=== PATIENT | female | born 1995 | race Caucasian/White ===

== ENCOUNTER 2017-05-14 22:34 | Emergency (ER) | payer MEDICAID ==
--- NOTE | 2017-05-14 23:28 | Emergency Department Record ---
History of Present Illness - General Chief complaint: Rash Stated complaint: RASH Time Seen by Provider: 05/14/17 23:21 Source: Patient Mode of Arrival: Ambulatory - History of Present Illness Initial comments: The [place] where she thought she may be exposed to poison lashell. She has a history of this in the past. This time her abdomen began itching which now is spreading to her legs and is on her arms. No SAMPSON or dysphagia. MD complaint: Rash Onset/Timin -: Days(s) Hx Tetanus Toxoid Vaccination: No Patient Tetanus UTD (within 5 yrs): No Consistency: Constant Improves with: None Worsens with: None Context: Recent camping Associated symptoms: Denies other symptoms Treatments Prior to Arrival: None - Related Data Home Medications Medication Instructions Recorded Confirmed Last Taken Atomoxetine HCl [Atomoxetine HCl] 25 mg PO DAILY 05/14/17 05/14/17 05/14/17 Norgestimate-Ethinyl Estradiol 1 tab PO DAILY 05/14/17 05/14/17 05/14/17 [[place] 28 Tablet] Previous Rx's Medication Instructions Recorded Prednisone [Prednisone 20Mg] 20 mg PO DAILY #20 tab 05/14/17 Allergies Allergy/AdvReac Type Severity Reaction Status Date / Time No Known Drug Allergies Allergy Verified 05/14/17 23:02 Travel Screening - Travel/Exposure Within Last 30 Days Have you traveled within the last 30 days?: No Review of Systems Reviewed: No additional complaints except as noted below Constitutional: Reports: As per HPI. Denies: Chills, Fever, Malaise, Night sweats, Weakness, Weight change Eyes: Reports: As per HPI. Denies: Eye discharge, Eye pain, Photophobia, Vision change ENT: Reports: As per HPI. Denies: Congestion, Dental pain, Ear pain, Epistaxis , Hearing loss, Throat pain Respiratory: Reports: As per HPI. Denies: Cough, Dyspnea, Hemoptysis, Stridor, Wheezes Cardiovascular: Reports: As per HPI. Denies: Arrhythmia, Chest pain, Dyspnea on exertion, Edema, Murmurs, Orthopnea, Palpitations, Paroxysmal nocturnal dyspnea, Rheumatic Fever, Syncope Endocrine: Reports: As per HPI. Denies: Fatigue, Heat or cold intolerance, Polydipsia, Polyuria Gastrointestinal: Reports: As per HPI. Denies: Abdominal pain, Constipation, Diarrhea, Hematemesis, Hematochezia, Melena, Nausea, Vomiting Genitourinary: Reports: As per HPI. Denies: Abnormal menses, Discharge, Dyspareunia, Dysuria, Frequency, Hematuria, Incontinence, Retention, Urgency Musculoskeletal: Reports: As per HPI. Denies: Arthralgia, Back pain, Gout, Joint swelling, Myalgia, Neck pain Skin: Reports: As per HPI. Denies: Bruising, Change in color, Change in hair/ nails, Lesions, Pruritus, Rash Neurological: Reports: As per HPI. Denies: Abnormal gait, Confusion, Headache, Numbness, Paresthesias, Seizure, Tingling, Tremors, Vertigo, Weakness Psychiatric: Reports: As per HPI. Denies: Anxiety, Auditory hallucinations, Depression, Homicidal thoughts, Suicidal thoughts, Visual hallucinations Hematological/Lymphatic: Reports: As per HPI. Denies: Anemia, Blood Clots, Easy bleeding, Easy bruising, Swollen glands Past Medical History - SOCIAL HISTORY Smoking Status: Never smoker Alcohol Use: None Drug Use: None - RESPIRATORY Hx Respiratory Disorders: No - CARDIOVASCULAR Hx Cardio Disorders: No - NEURO Hx Neuro Disorders: No - GI Hx GI Disorders: No - Hx Genitourinary Disorders: No - ENDOCRINE Hx Endocrine Disorders: No - MUSCULOSKELETAL Hx Musculoskeletal Disorders: No - PSYCH Hx Psych Problems: No - HEMATOLOGY/ONCOLOGY Hx Hematology/Oncology Disorders: No Family Medical History Any Significant Family History?: Yes Hx Cancer: Grandparents Hx Diabetes: Mother, Grandparents Physical Exam - General General Appearance: Alert, Oriented x3, Cooperative, No acute distress - Head Head exam: Normal inspection - Eye Eye exam: Normal appearance, PERRL Pupils: Normal accommodation - ENT ENT exam: Normal exam, Mucous membranes moist, Normal external ear exam, Normal orophraynx, TM's normal bilaterally Ear exam: Normal external inspection. negative: External canal tenderness Nasal Exam: Normal inspection. negative: Discharge, Sinus tenderness Mouth exam: Normal external inspection, Tongue normal Teeth exam: Normal inspection. negative: Dental caries Throat exam: Normal inspection. negative: Tonsillar erythema, Tonsillar exudate - Neck Neck exam: Normal inspection, Full ROM. negative: Tenderness - Respiratory Respiratory exam: Normal lung sounds bilaterally. negative: Respiratory distress - Cardiovascular Cardiovascular Exam: Regular rate, Normal rhythm, Normal heart sounds - GI/Abdominal GI/Abdominal exam: Soft, Normal bowel sounds. negative: Tenderness - Rectal Rectal exam: Deferred - exam: Deferred - Extremities Extremities exam: Normal inspection, Full ROM, Normal capillary refill. negative: Tenderness - Back Back exam: Reports: Normal inspection, Full ROM. Denies: Muscle spasm, Rash noted, Tenderness - Neurological Neurological exam: Alert, Normal gait, Oriented X3, Reflexes normal - Psychiatric Psychiatric exam: Normal affect, Normal mood - Skin Skin exam: Dry, Intact, Normal color, Rash (pruritic rash linear patterns with tiny occassional blistering consistent with poison lashell to abdomen, extremities and trunk), Warm Course Vital Signs 05/14/17 23:01 Temperature 98.3 F Pulse Rate [ 103 H Pulse Ox Probe] Respiratory 16 Rate Blood Pressure 123/71 [Left Arm] Pulse Ox 99 Medical Decision Making - Management Options MDM Management: No Additional Work-up Planned Disposition Disposition: Discharge Clinical Impression: Poison lashell dermatitis Disposition: Home, Self-Care Condition: (1) Good Instructions: Poison [place] (ED) Additional Instructions: Wash all clothing, scrub beneath nails and around cuticles to remove resin. Benadryl 50 mg every 6 hours--may cause drowsiness. Prednisone taper as directed until gone. Do not scratch. Follow up with pcp as needed. Prescriptions: Prednisone [Prednisone 20Mg] 20 mg PO DAILY #20 tab Forms: Patient Portal Access Quality - Quality Measures Quality Measures: N/A - Blood Pressure Screening Blood Pressure Classification: Pre-Hypertensive BP Reading Systolic Measurement: 123 Diastolic Measurement: 71 Screening for High Blood Pressure: < Normal BP, F/U Not Required > [G8783] Normal BP Follow-up Interventions: No follow-up required
[2017-05-14] MEDS ORDERED: DIPHENHYDRAMINE HCL 25 MG CAPSULE PO ONE (23:29)
[2017-05-14] MEDS ORDERED: PREDNISONE 20 MG TAB PO ONE (23:29)
== END 2017-05-14 23:41 | disposition home or self-care (01) ==
LOC: ER 22:34
DX: L23.7 Allergic contact dermatitis due to plants, except food (principal)
CPT/HCPCS: 99282; J7512

== ENCOUNTER 2017-06-26 09:27 | Emergency (ER) | payer MEDICAID ==
[2017-06-26] MEDS: LORAZEPAM 2 MG/ML VIAL IV ONE (09:35)
[2017-06-26] MEDS: MORPHINE SULFATE 5 MG/ML PFS IVP ONE (09:35)
[2017-06-26] MEDS: 0.9 % SODIUM CHLORIDE 1,000 ML BAG IV ONE (09:40)
[2017-06-26 09:43] LABS: BASO % 0.5 % (0-6); EOS % 1.6 % (0-6); GRAN % 70.9 % (47-80); HEMATOCRIT 35.8 % (35.0-47.0); HEMOGLOBIN 11.9 gm/dl (11.6-16.0); LYMPH % 19.7 % (16-45); MEAN CELL VOLUME 77.8 fl (81-97); MEAN CORPUSCULAR HEMOGLOBIN 25.9 pg (27-33); MEAN CORPUSCULAR HGB CONC 33.2 g/dl (32-36); MEAN PLATELET VOLUME 8.9 fl (7.4-10.4); MONO % 7.3 % (0-9); PLATELET COUNT 454 K/uL (130-400); RED CELL DISTRIBUTION WIDTH 13.8 % (11.5-14.5); WHITE BLOOD COUNT W/O DIFF 7.3 K/uL (4.2-12.2)
--- NOTE | 2017-06-26 09:45 | Emergency Department Record ---
History of Present Illness - General Chief Complaint: Laceration(s) Stated Complaint: LEG INJURY Time Seen by Provider: 06/26/17 09:30 Source: Patient, Family Mode of Arrival: Carried Limitations: No limitations - History of Present Illness Initial Commments: 21 yo female presents with a laceration to the left leg. She was mowing a side ditch and pinched her leg between the mower and a guardrail. She is unsure when her last tetanus shot was given. She has pain with weight bearing. After the injury she was able to run about 50 yards to find her father. She does have extreme anxiety regarding needles, sutures or health care. -: Minutes(s) Extremity Location: Left: Lower leg 1 - 3cm linear laceration, no debris Place: Home Context: Accidental, Sharp object use Treatments Prior to Arrival: Bandage - [place] Coma Scale Eye Response: (4) Open spontaneously Motor Response: (6) Obeys commands Verbal Response: (5) Oriented [place] Total: 15 - Related Data Hx Tetanus Toxoid Vaccination: No Previous Rx's Medication Instructions Recorded Prednisone [Prednisone 20Mg] 20 mg PO DAILY #20 tab 05/14/17 Cephalexin [Keflex] 500 mg PO TID #21 cap 06/26/17 Hydrocodone/Acetaminophen [[place] 1 each PO Q8H #15 tablet 06/26/17 5-325 Tablet] Allergies Allergy/AdvReac Type Severity Reaction Status Date / Time No Known Drug Allergies Allergy Verified 05/14/17 23:02 Review of Systems Constitutional: Denies: Chills, Fever, Malaise, Weakness Eyes: Denies: Eye discharge ENT: Denies: Congestion, Throat pain Respiratory: Denies: Cough, Dyspnea Cardiovascular: Denies: Chest pain, Syncope Endocrine: Denies: Fatigue Gastrointestinal: Denies: Abdominal pain, Diarrhea, Nausea, Vomiting Genitourinary: Denies: Abnormal menses, Dysuria Musculoskeletal: Reports: Myalgia Skin: Reports: Other (laceration). Denies: Bruising, Change in color, Rash Neurological: Denies: Headache, Vertigo, Weakness Psychiatric: Reports: Anxiety (servere anxiety to needles) Hematological/Lymphatic: Denies: Anemia, Blood Clots, Easy bleeding, Easy bruising, Swollen glands Past Medical History - SOCIAL HISTORY Smoking Status: Never smoker Drug Use: None - RESPIRATORY Hx Respiratory Disorders: No - CARDIOVASCULAR Hx Cardio Disorders: No - NEURO Hx Neuro Disorders: No - GI Hx GI Disorders: No - Hx Genitourinary Disorders: No - ENDOCRINE Hx Endocrine Disorders: No - MUSCULOSKELETAL Hx Musculoskeletal Disorders: No - PSYCH Hx Psych Problems: No - HEMATOLOGY/ONCOLOGY Hx Hematology/Oncology Disorders: No Family Medical History Hx Cancer: Grandparents Hx Diabetes: Mother, Grandparents Physical Exam - General General Appearance: Alert, Oriented x3, Cooperative, Anxious Limitations: No limitations - Head Head exam: Atraumatic, Normocephalic, Normal inspection - Eye Eye exam: Normal appearance. negative: Conjunctival injection, Periorbital swelling - ENT ENT exam: Normal exam Ear exam: Normal external inspection Nasal Exam: Normal inspection Mouth exam: Normal external inspection Teeth exam: Normal inspection - Neck Neck exam: Normal inspection, Full ROM. negative: Tenderness - Respiratory Respiratory exam: Normal lung sounds bilaterally. negative: Respiratory distress - Cardiovascular Cardiovascular Exam: Regular rate, Normal rhythm, Normal heart sounds - Rectal Rectal exam: Deferred - exam: Deferred - Extremities Extremities exam: Full ROM, Normal capillary refill, Tenderness, Other ( Laceration). negative: Normal inspection, Calf tenderness, Joint swelling, Pedal edema Image of Full Body: 1 - 2.2cm laceration to the mid anterior lazar, clean on inspection, no debris or FB - Back Back exam: Reports: Normal inspection - Neurological Neurological exam: Alert, Normal gait, Oriented X3, Reflexes normal, Other ( Full and normal foot flexion and extension, EHL is full ROM with strong resistence, sensation to the foot is intact, ankles strangth with extension and flexion is intact.). negative: Altered, Motor sensory deficit - Psychiatric Psychiatric exam: Normal affect, Normal mood - Skin Type of lesion: Laceration Course - Reevaluation(s) Reevaluation #1: The wound was numbed with 3ml of Lidocaine with Epi and Bupivacaine 50:50 mix Betadine prep 500cc NS irrigation performed. No debris or FB seen Pt to XR at this time 06/26/17 09:45 Reevaluation #2: The XR was reviewed. No visible FX or FB visible. The patient is calming but still high level of anxiety regarding care. Her parents states she has ADHD and Anxiety issues 06/26/17 09:56 06/26/17 10:17 The final read on the XR was negative except for the laceration. No Fx or FB The wound was cleaned with ShurClens the again irrigated with NS copious No FB seen Prolene 3-0 suture used for the 2.2cm laceration 6 sutures placed with good results The patient tolerated this well without pain. She is still significantly emotionally anxious 06/26/17 10:32 Reevaluation #3: RE-examination Minimal local lazar swelling with very soft appropriate muscles On recheck the DP and PT pulses are full and intact Her toes, foot, and ankle flexion and extension are full and intact Sensation is full and intact to the foot She denies pain but states she still feels the need to cry due to anxiety We discussed home care, reasons to return to the ED and follow up for suture removal 06/26/17 10:30 06/26/17 10:33 Reevaluation #4: HR down to 114. Her anxiety level is greatly improved. HR likely due to anxiety not other cause. 06/26/17 10:53 At DC she is ambulating without any difficulty Medical Decision Making - Lab Data Result diagrams: 06/26/17 09:35 06/26/17 09:35 Disposition Disposition: Discharge Clinical Impression: Laceration Disposition: Home, Self-Care Condition: (1) Good Instructions: Laceration (ED) Additional Instructions: Keep elevated to avoid swelling Return immediately if you have swelling, redness, pus, pain Return in 10 days for suture removal Take the Keflex daily for one week Prescriptions: Cephalexin [Keflex] 500 mg PO TID #21 cap Hydrocodone/Acetaminophen [Taylor 5-325 Tablet] 1 each PO Q8H #15 tablet Forms: Patient Portal Access Time of Disposition: 10:33 Quality - Quality Measures Quality Measures: N/A - Blood Pressure Screening Does Patient Have Any of the Following: No Blood Pressure Classification: Normal BP Reading Systolic Measurement: 112 Diastolic Measurement: 71 Screening for High Blood Pressure: < Normal BP, F/U Not Required > [G8783] Pre-Hypertensive Follow-up Interventions: Referral to alternative/primary care provider.
[2017-06-26 09:59] LABS: ANION GAP 14.2 (7-16); BLOOD UREA NITROGEN 6 mg/dL (7-17); CARBON DIOXIDE 19.8 mmol/L (22-30); CREATININE 0.7 mg/dL (0.52-1.04); EST GLOMERULAR FILTRATION RATE > 60 ml/min; GLUCOSE,RANDOM 118 mg/dL (70-110)
[2017-06-26] MEDS ORDERED: TETANUS AND DIPHTHERIA PF 0.5 ML SYR IM ONE (10:24)
[2017-06-26] MEDS: Diph,Pert(Acell),Tet Vac 0.5 ML SYR IM ONE (10:31)
--- NOTE | 2017-06-27 08:06 | RADIOLOGY REPORT ---
EXAM: LEFT TIBIA AND FIBULA, TWO VIEWS HISTORY: LEFT LOWER EXTREMITY CRUSHED BETWEEN MOWER AND GUARDRAIL. LACERATION ANTERIOR LEFT LOWER LEG. TECHNIQUE: Two views of the left tibia and fibula were obtained. Comparison: None. Encounter: Initial. FINDINGS: Pretibial soft tissue defect distal third left tibial diaphysis. No fracture. No radiodense foreign body. IMPRESSION: SOFT TISSUE DEFECT IN THE LEFT PRETIBIAL REGION. NO FRACTURE OR RADIODENSE FOREIGN BODY. JOB NUMBER: [id number] MTDD
== END 2017-06-26 11:18 | disposition home or self-care (01) ==
LOC: ER 09:27
DX: S81.812A Laceration without foreign body, left lower leg, initial encounter (principal); R11.2 Nausea with vomiting, unspecified; W31.89XA Contact with other specified machinery, initial encounter; Y93.H9 Activity, other involving exterior property and land maintenance, building and construction; Y92.007 Garden or yard of unspecified non-institutional (private) residence as the place of occurrence of the external cause
CPT/HCPCS: 12001 ×2; 99282 ×2; 99284 ×2; 96374; 96372; 96375; 85025; 80048; 84703; 73590; J2060; J2270; 90715; J7030

== ENCOUNTER 2017-06-26 23:17 | Emergency (ER) | payer MEDICAID ==
[2017-06-26] MEDS ORDERED: ONDANSETRON 4 MG ODT TABLET SL ONE (23:23)
--- NOTE | 2017-06-26 23:28 | Emergency Department Record ---
History of Present Illness - General Chief complaint: Vomiting Stated complaint: ANTIBIOTIC CHANGE Time Seen by Provider: 06/26/17 23:23 Source: Patient Mode of Arrival: Ambulatory Limitations: No limitations - History of Present Illness Initial comments: 21 yo female presents to ED with a CC of intermittent nausea and vomiting symptoms after taking her antibiotic both this afternoon and evening. Patient was seen earlier today for a laceration to the left lower extremity that occurred while mowing her lawn, was started on Keflex following repair. Patient denies abdominal pain symptoms, fevers, chills, or recent illness. MD complaint: Nausea, Vomiting Onset/Timin -: Days(s) Associated Abdominal Pain: No Radiation: None Severity: Moderate Consistency: Intermittent Improves with: None Worsens with: None Associated Symptoms: Denies other symptoms - Related Data Previous Rx's Medication Instructions Recorded Prednisone [Prednisone 20Mg] 20 mg PO DAILY #20 tab 05/14/17 Cephalexin [Keflex] 500 mg PO TID #21 cap 06/26/17 Hydrocodone/Acetaminophen [[place] 1 each PO Q8H #15 tablet 06/26/17 5-325 Tablet] Ondansetron [Zofran Odt] 4 mg PO Q6H PRN #20 tab.rapdis 06/26/17 Allergies Allergy/AdvReac Type Severity Reaction Status Date / Time No Known Drug Allergies Allergy Verified 05/14/17 23:02 Review of Systems Constitutional: Denies: Chills, Fever, Malaise, Night sweats Eyes: Denies: Eye discharge, Eye pain ENT: Denies: Congestion, Ear pain, Epistaxis Respiratory: Denies: Cough, Dyspnea Cardiovascular: Denies: Chest pain, Dyspnea on exertion Endocrine: Denies: Fatigue, Heat or cold intolerance Gastrointestinal: Reports: Nausea, Vomiting. Denies: Abdominal pain Genitourinary: Denies: Incontinence, Retention Musculoskeletal: Denies: Arthralgia, Back pain, Gout, Joint swelling Skin: Denies: Bruising, Change in color Neurological: Denies: Abnormal gait, Confusion, Headache, Seizure Psychiatric: Denies: Anxiety Hematological/Lymphatic: Denies: Anemia, Blood Clots Past Medical History - SOCIAL HISTORY Smoking Status: Never smoker Drug Use: None - RESPIRATORY Hx Respiratory Disorders: No - CARDIOVASCULAR Hx Cardio Disorders: No - NEURO Hx Neuro Disorders: No - GI Hx GI Disorders: No - Hx Genitourinary Disorders: No - ENDOCRINE Hx Endocrine Disorders: No - MUSCULOSKELETAL Hx Musculoskeletal Disorders: No - PSYCH Hx Psych Problems: No - HEMATOLOGY/ONCOLOGY Hx Hematology/Oncology Disorders: No Family Medical History Hx Cancer: Grandparents Hx Diabetes: Mother, Grandparents Physical Exam - General General Appearance: Alert, Oriented x3, Cooperative, No acute distress Limitations: No limitations - Head Head exam: Atraumatic, Normocephalic, Normal inspection Head exam detail: negative: Abrasion, Contusion, Leung's sign, General tenderness, Hematoma, Laceration - Eye Eye exam: Normal appearance. negative: Conjunctival injection, Periorbital swelling, Periorbital tenderness, Scleral icterus - ENT Ear exam: negative: Auricular hematoma, Auricular trauma Nasal Exam: negative: Active bleeding, Discharge, Dried blood, Foreign body Mouth exam: negative: Drooling, Laceration, Muffled voice, Tongue elevation - Neck Neck exam: Normal inspection. negative: Meningismus, Tenderness - Respiratory Respiratory exam: Normal lung sounds bilaterally. negative: Rales, Respiratory distress, Rhonchi, Stridor - Cardiovascular Cardiovascular Exam: Regular rate, Normal rhythm, Normal heart sounds - GI/Abdominal GI/Abdominal exam: Soft. negative: Rebound, Rigid, Tenderness - Rectal Rectal exam: Deferred - exam: Deferred - Extremities Extremities exam: negative: Calf tenderness, Pedal edema, Tenderness - Back Back exam: Denies: CVA tenderness (R), CVA tenderness (L) - Neurological Neurological exam: Alert, Normal gait, Oriented X3 - Psychiatric Psychiatric exam: Normal affect, Normal mood - Skin Skin exam: Normal color. negative: Abrasion Type of lesion: negative: abrasion Course - Reevaluation(s) Reevaluation #1: 06/27/17 00:13 Patient reassessed, reports that her nausea symptoms are improved. Will have the patient continue Keflex as prescribed with Zofran as needed for nausea. Patient and family agree with plan as discussed. Disposition Disposition: Discharge Clinical Impression: Laceration of lower extremity Qualifiers: Encounter type: subsequent encounter Laterality: left Qualified Code(s): S81.812D - Laceration without foreign body, left lower leg, subsequent encounter Nausea & vomiting Qualifiers: Vomiting type: unspecified Vomiting Intractability: non-intractable Qualified Code(s): R11.2 - Nausea with vomiting, unspecified Disposition: Home, Self-Care Condition: (2) Stable Instructions: Acute Nausea and Vomiting (ED) Additional Instructions: Return to ED if your symptoms worsen or if you have any concerns. Zofran as directed. Follow-up with your family doctor in 3-5 days as directed. Prescriptions: Ondansetron [Zofran Odt] 4 mg PO Q6H PRN #20 tab.rapdis PRN Reason: Nausea/Vomiting Forms: Patient Portal Access Time of Disposition: 23:29 Quality - Quality Measures Quality Measures: N/A - Blood Pressure Screening Does Patient Have Any of the Following: No Blood Pressure Classification: Normal BP Reading Systolic Measurement: 119 Diastolic Measurement: 78 Screening for High Blood Pressure: < Normal BP, F/U Not Required > [G8783]
== END 2017-06-27 00:18 | disposition home or self-care (01) ==
LOC: ER 23:17
DX: R11.2 Nausea with vomiting, unspecified (principal)

== ENCOUNTER 2017-07-06 12:28 | Emergency (ER) | payer MEDICAID ==
--- NOTE | 2017-07-06 12:48 | Emergency Department Record ---
History of Present Illness - General Chief Complaint: Suture removal Stated Complaint: SUTURE REMOVAL Time Seen by Provider: 07/06/17 12:33 Source: Patient Mode of arrival: Ambulatory Limitations: No limitations - History of Present Illness Initial Comments: The patient is here for suture removal. She denies any problems. Complaint: Suture/staple removal Onset/Timin -: Days(s) Initial Visit For: Laceration Returns Today for: Staple/stitch removal Symptoms Since Prior Visit: No new symptoms Associated Symptoms: None - Related Data Allergies Allergy/AdvReac Type Severity Reaction Status Date / Time No Known Drug Allergies Allergy Verified 07/06/17 12:41 Travel Screening - Travel/Exposure Within Last 30 Days Have you traveled within the last 30 days?: No - Travel/Exposure Within Last Year Have you traveled outside the [place] in the last year?: No - Additonal Travel Details Have you been exposed to anyone with a communicable illness?: No - Travel Symptoms Symptom Screening: None Past Medical History - SOCIAL HISTORY Smoking Status: Never smoker Alcohol Use: None Drug Use: None - RESPIRATORY Hx Respiratory Disorders: No - CARDIOVASCULAR Hx Cardio Disorders: No - NEURO Hx Neuro Disorders: No - GI Hx GI Disorders: No - Hx Genitourinary Disorders: No - ENDOCRINE Hx Endocrine Disorders: No - MUSCULOSKELETAL Hx Musculoskeletal Disorders: No - PSYCH Hx Psych Problems: No - HEMATOLOGY/ONCOLOGY Hx Hematology/Oncology Disorders: No Family Medical History Any Significant Family History?: Yes Hx Cancer: Grandparents Hx Diabetes: Mother, Grandparents Physical Exam - General General Appearance: Alert, Cooperative, No acute distress - Extremities Extremities exam: negative: Normal inspection (There is a well healed lac to the L anterior lower leg. The sutures were removed with no difficulty.) Course Vital Signs 07/06/17 12:34 Temperature 98.2 F Pulse Rate 97 H Respiratory 16 Rate Blood Pressure 126/92 Pulse Ox 99 Disposition Disposition: Discharge Clinical Impression: Visit for suture removal Disposition: Home, Self-Care Condition: (1) Good Instructions: Stitches Removal (ED) Additional Instructions: Return to the ER for any problems. Forms: Patient Portal Access Time of Disposition: 12:48 Quality - Quality Measures Quality Measures: N/A - Blood Pressure Screening View Details: Yes Does Patient Have Any of the Following: No Blood Pressure Classification: Hypertensive Reading Systolic Measurement: 126 Diastolic Measurement: 92 Screening for High Blood Pressure: < Pre-Hypertensive BP, F/U Documented > [ G8950] Pre-Hypertensive Follow-up Interventions: Referral to alternative/primary care provider.
== END 2017-07-06 12:52 | disposition home or self-care (01) ==
LOC: ER 12:28
DX: Z48.02 Encounter for removal of sutures (principal)

== ENCOUNTER 2017-12-03 20:20 | Emergency (ER) | payer MEDICAID ==
--- NOTE | 2017-12-03 20:38 | Emergency Department Record ---
History of Present Illness - General Chief Complaint: Chest Pain Stated Complaint: CHEST PAIN/ Time Seen by Provider: 12/03/17 20:24 Source: Patient Mode of Arrival: Ambulatory Limitations: No limitations - History of Present Illness Initial Comments: 21 yo female presents to ED for evaluation of chest discomfort symptoms intermittently since this morning. Patient denies fevers, chills, cough symptoms, or recent illness. Patient denies health problems at her baseline, but has been on OCPs for several years. Patient denies lower extremity swelling of pain symptoms. Patient denies symptoms currently. MD Complaint: Chest pain Onset/Timin -: Days(s) Pain Location: Substernal Pain Radiation: None Severity: Mild Consistency: Intermittent Improves With: Nothing Worsens With: Nothing - Related Data On Oral Contraceptives: Yes Allergies Allergy/AdvReac Type Severity Reaction Status Date / Time No Known Drug Allergies Allergy Verified 07/06/17 12:41 Review of Systems Constitutional: Denies: Chills, Fever, Malaise, Night sweats Eyes: Denies: Eye discharge, Eye pain ENT: Denies: Congestion, Ear pain, Epistaxis Respiratory: Denies: Cough, Dyspnea Cardiovascular: Reports: Chest pain. Denies: Dyspnea on exertion Endocrine: Denies: Fatigue, Heat or cold intolerance Gastrointestinal: Denies: Abdominal pain, Nausea, Vomiting Genitourinary: Denies: Incontinence, Retention Musculoskeletal: Denies: Arthralgia, Back pain, Gout, Joint swelling Skin: Denies: Bruising, Change in color Neurological: Denies: Abnormal gait, Confusion, Headache, Seizure Psychiatric: Denies: Anxiety Hematological/Lymphatic: Denies: Anemia, Blood Clots Past Medical History - SOCIAL HISTORY Smoking Status: Never smoker Drug Use: None - RESPIRATORY Hx Respiratory Disorders: No - CARDIOVASCULAR Hx Cardio Disorders: No - NEURO Hx Neuro Disorders: No - GI Hx GI Disorders: No - Hx Genitourinary Disorders: No - ENDOCRINE Hx Endocrine Disorders: No - MUSCULOSKELETAL Hx Musculoskeletal Disorders: No - PSYCH Hx Psych Problems: No - HEMATOLOGY/ONCOLOGY Hx Hematology/Oncology Disorders: No Family Medical History Hx Cancer: Grandparents Hx Diabetes: Mother, Grandparents Physical Exam - General General Appearance: Alert, Oriented x3, Cooperative, No acute distress Limitations: No limitations - Head Head exam: Atraumatic, Normocephalic, Normal inspection Head exam detail: negative: Abrasion, Contusion, Leung's sign, General tenderness, Hematoma, Laceration - Eye Eye exam: Normal appearance. negative: Conjunctival injection, Periorbital swelling, Periorbital tenderness, Scleral icterus - ENT Ear exam: negative: Auricular hematoma, Auricular trauma Nasal Exam: negative: Active bleeding, Discharge, Dried blood, Foreign body Mouth exam: negative: Drooling, Laceration, Muffled voice, Tongue elevation - Neck Neck exam: Normal inspection. negative: Meningismus, Tenderness - Respiratory Respiratory exam: Normal lung sounds bilaterally. negative: Rales, Respiratory distress, Rhonchi, Stridor - Cardiovascular Cardiovascular Exam: Regular rate, Normal rhythm, Normal heart sounds - GI/Abdominal GI/Abdominal exam: Soft. negative: Rebound, Rigid, Tenderness - Rectal Rectal exam: Deferred - exam: Deferred - Extremities Extremities exam: Normal inspection. negative: Calf tenderness, Pedal edema, Tenderness - Back Back exam: Denies: CVA tenderness (R), CVA tenderness (L) - Neurological Neurological exam: Alert, Normal gait, Oriented X3 - Psychiatric Psychiatric exam: Normal affect, Normal mood - Skin Skin exam: Normal color. negative: Abrasion Type of lesion: negative: abrasion Course - Reevaluation(s) Reevaluation #1: 12/03/17 20:37 EKG: NSR 97 Normal axis, normal intervals No acute ST-T wave changes Reevaluation #2: 12/03/17 21:41 Labs reviewed, D-Dimer 10.19. Labs are otherwise grossly unremarkable for an acute process. CTA ordered. Reevaluation #3: 12/03/17 22:55 CTA Chest: Negative for PE Patient and family were updated on all results, patient appears stable for discharge at this time. Medical Decision Making - Lab Data Result diagrams: 12/03/17 21:10 12/03/17 21:10 Disposition Disposition: Discharge Clinical Impression: Atypical chest pain Disposition: Home, Self-Care Condition: (2) Stable Instructions: Chest Pain (ED) Additional Instructions: Return to ED if your symptoms worsen or if you have any concerns. Follow-up with your family doctor in 3-5 days as directed. Forms: Patient Portal Access Time of Disposition: 22:57 Quality - Quality Measures Quality Measures: N/A - Blood Pressure Screening Does Patient Have Any of the Following: No Blood Pressure Classification: Hypertensive Reading Systolic Measurement: 147 Diastolic Measurement: 93 Screening for High Blood Pressure: < First Hypertensive BP, F/U Documented > [ G8950] First Hypertensive Follow-up Interventions: Referral to alternative/primary care provider.
[2017-12-03 21:16] LABS: HEMATOCRIT 34.9 % (35.0-47.0); HEMOGLOBIN 11.7 gm/dl (11.6-16.0); MEAN CELL VOLUME 79.5 fl (81-97); MEAN CORPUSCULAR HEMOGLOBIN 26.7 pg (27-33); MEAN CORPUSCULAR HGB CONC 33.5 g/dl (32-36); MEAN PLATELET VOLUME 8.9 fl (7.4-10.4); PLATELET COUNT 342 K/uL (130-400); RED BLOOD COUNT 4.39 M/uL (3.80-5.40); RED CELL DISTRIBUTION WIDTH 13.4 % (11.5-14.5); WHITE BLOOD COUNT W/O DIFF 7.8 K/uL (4.2-12.2)
[2017-12-03 21:29] LABS: BLOOD UREA NITROGEN 12 mg/dL (6-20); CREATININE 0.8 mg/dL (0.5-0.9); EST GLOMERULAR FILTRATION RATE > 60 mL/min
[2017-12-03 21:30] LABS: TOTAL PROTEIN 7.5 g/dL (6.6-8.7)
[2017-12-03 21:32] LABS: GLUCOSE,RANDOM 102 mg/dL (74-109)
[2017-12-03 21:35] LABS: ALB/GLOB RATIO 1.2 (1.1-1.8); ALBUMIN 4.1 g/dL (4.0-5.0); ALKALINE PHOSPHATASE 85 U/L (35-104); ALT/SGPT 11 U/L (<33); AST/SGOT 15 U/L (10.0-35.0)
--- NOTE | 2017-12-05 13:06 | CT ANGIOGRAM REPORT ---
DATE: 12/03/2017 at 10:03 p.m. EXAM: CT ANGIOGRAM OF THE CHEST CTA WITH CONTRAST FOR PULMONARY EMBOLUS. HISTORY: Chest pain, elevated D-dimer, possible pulmonary embolus. TECHNIQUE: CT angiogram of the chest performed following intravenous administration of 75 mL of Omnipaque 350 as the intravenous contrast. Postprocessing at an independent work station was performed with multiple 3D MIP series obtained. Preliminary report provided by [facility]. COMPARISON: No prior chest CT or chest x-ray with which to compare. FINDINGS: No definite pulmonary embolus identified. No thoracic aortic aneurysm or dissection is seen. No pleural or pericardial effusion evident. The heart size is normal. There is some minor soft tissue density in the anterior mediastinum that does not appear particularly mass-like and is likely just residual thymus in a patient of this young age. Some normal-sized mediastinal nodes are seen with no definite mediastinal or hilar adenopathy identified. No acute infiltrate is identified. IMPRESSION: EMERGENCY CT ANGIOGRAM OF THE CHEST APPEARS ESSENTIALLY NEGATIVE WITH NO DEFINITE PULMONARY EMBOLUS IDENTIFIED. MINOR SOFT TISSUE IN THE ANTERIOR MEDIASTINUM IS LIKELY JUST RESIDUAL THYMUS IN A PATIENT OF THIS YOUNG AGE. JOB NUMBER: [id number] [facility]
== END 2017-12-03 23:03 | disposition home or self-care (01) ==
LOC: ER 20:20
DX: R07.89 Other chest pain (principal)
CPT/HCPCS: 99284 ×2; 80053; 85379; 85027; 71275; 93005; 93010; Q9967

== ENCOUNTER 2017-12-04 10:15 | Emergency (ER) | payer MEDICAID ==
[2017-12-04] MEDS ORDERED: DIPHENHYDRAMINE HCL 25 MG CAPSULE PO ONE (10:22)
[2017-12-04] MEDS ORDERED: PREDNISONE 20 MG TAB PO ONE (10:22)
--- NOTE | 2017-12-04 10:23 | Emergency Department Record ---
History of Present Illness - General Stated complaint: LIP SWELLING Time Seen by Provider: 12/04/17 10:15 Source: Patient, Family Mode of Arrival: Ambulatory Limitations: No limitations - History of Present Illness Initial comments: 21 yo female presents with concern about lip swelling this morning. She reports she had a CT with contrast. Last night she had some throat sensations that resolved. She woke up this morning with mild lip swelling. No cough, shortness of breath, voice changes, hives, or wheezing. No history of significant allergies. She did note some injection of the eyes. No drainage. MD complaint: Other (Lip swelling) -: Hour(s) Location: Upper lip, Other Severity: Mild Quality: Other (No pain) Improves with: None Worsens with: None Associated Symptoms: Other (Lip swelling with mild eye injection) - Related Data Previous Rx's Medication Instructions Recorded Prednisone [Prednisone 20Mg] 20 mg PO BID #10 tab 12/04/17 Allergies Allergy/AdvReac Type Severity Reaction Status Date / Time Iodinated Contrast- Oral and Allergy Intermediate SWELLING Verified 12/04/17 10: 31 IV Dye OF THE LIPS Review of Systems Constitutional: Denies: Chills, Fever, Malaise, Weakness Eyes: Denies: Eye discharge, Eye pain, Photophobia, Vision change ENT: Reports: Other (lip swelling). Denies: Congestion, Dental pain, Ear pain, Epistaxis, Throat pain Respiratory: Denies: Cough, Dyspnea, Wheezes Cardiovascular: Reports: Chest pain (in ED last night, resolved). Denies: Syncope Endocrine: Denies: Fatigue Gastrointestinal: Denies: Abdominal pain, Diarrhea, Nausea, Vomiting Genitourinary: Denies: Dysuria, Urgency Musculoskeletal: Denies: Arthralgia, Back pain, Joint swelling, Myalgia, Neck pain Skin: Denies: Bruising, Change in color, Rash Neurological: Denies: Confusion, Headache, Numbness, Weakness Psychiatric: Denies: Anxiety Hematological/Lymphatic: Denies: Blood Clots, Easy bleeding, Easy bruising, Swollen glands Past Medical History - SOCIAL HISTORY Smoking Status: Never smoker Drug Use: None - RESPIRATORY Hx Respiratory Disorders: No - CARDIOVASCULAR Hx Cardio Disorders: No - NEURO Hx Neuro Disorders: No - GI Hx GI Disorders: No - Hx Genitourinary Disorders: No - ENDOCRINE Hx Endocrine Disorders: No - MUSCULOSKELETAL Hx Musculoskeletal Disorders: No - PSYCH Hx Psych Problems: No - HEMATOLOGY/ONCOLOGY Hx Hematology/Oncology Disorders: No Family Medical History Hx Cancer: Grandparents Hx Diabetes: Mother, Grandparents Physical Exam - General General Appearance: Alert, Oriented x3, Cooperative, No acute distress, Other ( Well appearing) Limitations: No limitations - Head Head exam: Atraumatic, Normocephalic, Normal inspection Head exam detail: negative: Abrasion, Contusion, Hematoma, Laceration - Eye Eye exam: Normal appearance, PERRL, Conjunctival injection (mild on the left), EOMI. negative: Periorbital swelling, Periorbital tenderness - ENT ENT exam: Mucous membranes moist, Normal orophraynx. negative: Mucous membranes dry Ear exam: Normal external inspection Nasal Exam: Normal inspection. negative: Discharge Mouth exam: Normal external inspection Teeth exam: Normal inspection Throat exam: Normal inspection. negative: Tonsillar erythema, Tonsillomegaly, Tonsillar exudate, R peritonsillar mass, L peritonsillar mass - Neck Neck exam: Normal inspection. negative: Lymphadenopathy, Tenderness, Thyromegaly - Respiratory Respiratory exam: Normal lung sounds bilaterally. negative: Accessory muscle use, Decreased breath sounds, Respiratory distress, Rhonchi, Stridor, Wheezes - Cardiovascular Cardiovascular Exam: Regular rate, Normal rhythm, Normal heart sounds - GI/Abdominal GI/Abdominal exam: Soft. negative: Tenderness - Rectal Rectal exam: Deferred - exam: Deferred - Extremities Extremities exam: Normal inspection, Full ROM, Normal capillary refill. negative: Tenderness - Back Back exam: Reports: Normal inspection, Full ROM. Denies: Muscle spasm, Rash noted, Tenderness - Neurological Neurological exam: Alert, Normal gait, Oriented X3 - Psychiatric Psychiatric exam: Normal affect, Normal mood - Skin Skin exam: Dry, Intact, Normal color, Warm Course - Reevaluation(s) Reevaluation #1: 12/04/17 10:30 The vitals were reviewed No acute changes The physical findings are very minimal at this time I explained it is not always possible to know if it a reaction to contrast that was given last night She is not on any new medications 12/04/17 10:36 The patient is doing very well. No airway symptoms We discussed home care, reasons to return and follow up with the PCP. Disposition Disposition: Discharge Clinical Impression: Lip swelling Disposition: Home, Self-Care Condition: (1) Good Instructions: General Allergic Reaction (ED) Additional Instructions: Apply ice to the lip to minimize the swelling Return if you have shortness of breath, worse swelling or any new concerns Take the Benadryl every 6 hours today Prescriptions: Prednisone [Prednisone 20Mg] 20 mg PO BID #10 tab Time of Disposition: 10:32 Quality - Quality Measures Quality Measures: N/A - Blood Pressure Screening Does Patient Have Any of the Following: No Blood Pressure Classification: Pre-Hypertensive BP Reading Systolic Measurement: 121 Diastolic Measurement: 69 Screening for High Blood Pressure: < Pre-Hypertensive BP, F/U Documented > [ G8950] Pre-Hypertensive Follow-up Interventions: Referral to alternative/primary care provider.
== END 2017-12-04 10:45 | disposition home or self-care (01) ==
LOC: ER 10:15
DX: R22.0 Localized swelling, mass and lump, head (principal)
CPT/HCPCS: 99282; J7512

== ENCOUNTER 2018-04-15 21:07 | Emergency (ER) | payer MEDICAID ==
--- NOTE | 2018-04-15 21:19 | Emergency Department Record ---
History of Present Illness - General Chief complaint: Extremity Problem Stated complaint: RT ARM PAIN Time Seen by Provider: 04/15/18 21:18 Source: Patient Mode of Arrival: Ambulatory Limitations: No limitations - History of Present Illness Initial comments: 22 yo female presents to ED for evaluation of pain to the right shoulder after jumping into an dinner tube yesterday. Patient reports pain with elevation of the shoulder, described as a "pulling sensation". Patient reports full AROM, denies weakness, numbness, tingling, or pain with palpation. Patient has not taken anything for his symptoms, denies health problems at her baseline. MD Complaint: Joint pain Onset/Timin -: Days(s) Location: Right, Shoulder History of Same: No Severity scale (1-10): 7 Quality: Aching Consistency: Constant, Getting worse Improves with: Nothing Worsens with: Nothing Associated Symptoms: Denies other symptoms - Related Data Allergies Allergy/AdvReac Type Severity Reaction Status Date / Time Iodinated Contrast- Oral and Allergy Intermediate SWELLING Verified 12/04/17 10: 31 IV Dye OF THE LIPS Travel Screening - Travel/Exposure Within Last 30 Days Have you traveled within the last 30 days?: No Review of Systems Constitutional: Denies: Chills, Fever, Malaise, Night sweats Eyes: Denies: Eye discharge, Eye pain ENT: Denies: Congestion, Ear pain, Epistaxis Respiratory: Denies: Cough, Dyspnea Cardiovascular: Denies: Chest pain, Dyspnea on exertion Endocrine: Denies: Fatigue, Heat or cold intolerance Gastrointestinal: Denies: Abdominal pain, Nausea, Vomiting Genitourinary: Denies: Incontinence, Retention Musculoskeletal: Reports: Other (Shoulder pain). Denies: Back pain, Gout, Joint swelling Skin: Denies: Bruising, Change in color Neurological: Denies: Abnormal gait, Confusion, Headache, Seizure Psychiatric: Denies: Anxiety Hematological/Lymphatic: Denies: Anemia, Blood Clots Past Medical History - SOCIAL HISTORY Smoking Status: Never smoker - RESPIRATORY Hx Respiratory Disorders: No - CARDIOVASCULAR Hx Cardio Disorders: No - NEURO Hx Neuro Disorders: No - GI Hx GI Disorders: No - Hx Genitourinary Disorders: No - ENDOCRINE Hx Endocrine Disorders: No - MUSCULOSKELETAL Hx Musculoskeletal Disorders: No - PSYCH Hx Psych Problems: No Hx Anxiety: Yes Comment:: ADHD - HEMATOLOGY/ONCOLOGY Hx Hematology/Oncology Disorders: No Family Medical History Any Significant Family History?: Yes Hx Cancer: Grandparents Hx Diabetes: Mother, Grandparents Physical Exam - General General Appearance: Alert, Oriented x3, Cooperative, No acute distress Limitations: No limitations - Head Head exam: Atraumatic, Normocephalic, Normal inspection Head exam detail: negative: Abrasion, Contusion, Leung's sign, General tenderness, Hematoma, Laceration - Eye Eye exam: Normal appearance. negative: Conjunctival injection, Periorbital swelling, Periorbital tenderness, Scleral icterus - ENT Ear exam: negative: Auricular hematoma, Auricular trauma Nasal Exam: negative: Active bleeding, Discharge, Dried blood, Foreign body Mouth exam: negative: Drooling, Laceration, Muffled voice, Tongue elevation - Neck Neck exam: Normal inspection. negative: Meningismus, Tenderness - Respiratory Respiratory exam: Normal lung sounds bilaterally. negative: Rales, Respiratory distress, Rhonchi, Stridor - Cardiovascular Cardiovascular Exam: Regular rate, Normal rhythm, Normal heart sounds Peripheral Pulses: 3+: Radial (R) - GI/Abdominal GI/Abdominal exam: Soft. negative: Rebound, Rigid, Tenderness - Rectal Rectal exam: Deferred - exam: Deferred - Extremities Extremities exam: Tenderness, Other (Full AROM on examination, very mild TTP to the supraspinatus region of the shoulder, no pain with palpation or examination , strong distal radial pulse, compartments of the upper and forearm are soft on examination. ). negative: Calf tenderness, Pedal edema - Back Back exam: Denies: CVA tenderness (R), CVA tenderness (L) - Neurological Neurological exam: Alert, Normal gait, Oriented X3 - Psychiatric Psychiatric exam: Normal affect, Normal mood - Skin Skin exam: Normal color. negative: Abrasion Type of lesion: negative: abrasion Course Vital Signs 04/15/18 21:13 Temperature 99.3 F Pulse Rate [ 106 H Pulse Ox Probe] Respiratory 18 Rate Blood Pressure 135/77 [Left Arm] Pulse Ox 98 - Reevaluation(s) Reevaluation #1: 04/15/18 21:24 Patient is well appearing on examination without pain or discomfort unless the shoulder is abducted above 90 degrees, only then does she have mild discomfort. Radiographs are unlikely to be of benefit, recommended Ibuprofen as needed for her pain symptoms and follow-up with her PCP in 3-5 days as directed. Patient and family are in agreement with the plan of care as discussed. Disposition Disposition: Discharge Clinical Impression: Right shoulder strain Qualifiers: Encounter type: initial encounter Qualified Code(s): S46.911A - Strain of unspecified muscle, fascia and tendon at shoulder and upper arm level, right arm , initial encounter Disposition: Home, Self-Care Condition: (2) Stable Instructions: Rotator Cuff Injury (ED) Additional Instructions: Return to ED if your symptoms worsen or if you have any concerns. Ibuprofen as directed. Follow-up with your family doctor in 3-5 days as directed. Forms: Patient Portal Access Time of Disposition: 21:19 Quality - Quality Measures Quality Measures: N/A - Blood Pressure Screening Does Patient Have Any of the Following: No Blood Pressure Classification: Pre-Hypertensive BP Reading Systolic Measurement: 135 Diastolic Measurement: 77 Screening for High Blood Pressure: < Pre-Hypertensive BP, F/U Documented > [ G8950] Pre-Hypertensive Follow-up Interventions: Referral to alternative/primary care provider.
== END 2018-04-15 21:46 | disposition home or self-care (01) ==
LOC: ER 21:07
DX: S46.911A Strain of unspecified muscle, fascia and tendon at shoulder and upper arm level, right arm, initial encounter (principal); W01.198A Fall on same level from slipping, tripping and stumbling with subsequent striking against other object, initial encounter; Y93.39 Activity, other involving climbing, rappelling and jumping off; Y92.828 Other wilderness area as the place of occurrence of the external cause
CPT/HCPCS: 99282

== ENCOUNTER 2018-06-20 18:51 | Emergency (ER) | payer MEDICAID ==
--- NOTE | 2018-06-20 19:05 | Emergency Department Record ---
History of Present Illness - General Chief complaint: Rash Stated complaint: RASH Time Seen by Provider: 06/20/18 18:58 Source: Patient Mode of Arrival: Ambulatory Limitations: No limitations - History of Present Illness Initial comments: The patient is here due to a mild pruritic rash to the R arm and lower abdomen for 2 days. She got exposed to poison rehan a few days ago. She has been using special soap and Benadryl but is not better. MD complaint: Rash Onset/Timin -: Days(s) Hx Tetanus Toxoid Vaccination: Yes Year of Tetanus Vaccination: 2016 Location: Generalized Severity: Mild Consistency: Constant Improves with: None Worsens with: None Context: Other Associated symptoms: Itching Treatments Prior to Arrival: Benadryl - Related Data Previous Rx's Medication Instructions Recorded Prednisone [Prednisone 20Mg] 20 mg PO ASDIR #15 tab 06/20/18 Allergies Allergy/AdvReac Type Severity Reaction Status Date / Time Iodinated Contrast- Oral and Allergy Intermediate SWELLING Verified 06/20/18 18: 55 IV Dye OF THE LIPS Travel Screening - Travel/Exposure Within Last 30 Days Have you traveled within the last 30 days?: No - Travel/Exposure Within Last Year Have you traveled outside the [place] in the last year?: No - Additonal Travel Details Have you been exposed to anyone with a communicable illness?: No - Travel Symptoms Symptom Screening: None Review of Systems Constitutional: Denies: Chills, Fever Eyes: Denies: Eye discharge ENT: Denies: Congestion, Throat pain Respiratory: Denies: Cough, Dyspnea Past Medical History - SOCIAL HISTORY Smoking Status: Never smoker Alcohol Use: None Drug Use: None - RESPIRATORY Hx Respiratory Disorders: No - CARDIOVASCULAR Hx Cardio Disorders: No - NEURO Hx Neuro Disorders: No - GI Hx GI Disorders: No - Hx Genitourinary Disorders: No - ENDOCRINE Hx Endocrine Disorders: No - MUSCULOSKELETAL Hx Musculoskeletal Disorders: No - PSYCH Hx Psych Problems: No Hx Anxiety: Yes Comment:: ADHD - HEMATOLOGY/ONCOLOGY Hx Hematology/Oncology Disorders: No Family Medical History Any Significant Family History?: Yes Hx Cancer: Grandparents Hx Diabetes: Mother, Grandparents Physical Exam - General General Appearance: Alert, Oriented x3, Cooperative, No acute distress - Head Head exam: Atraumatic, Normocephalic, Normal inspection - Eye Eye exam: Normal appearance, PERRL, EOMI - Neck Neck exam: Normal inspection, Full ROM. negative: Tenderness - Respiratory Respiratory exam: Normal lung sounds bilaterally. negative: Respiratory distress - Cardiovascular Cardiovascular Exam: Regular rate, Normal rhythm, Normal heart sounds - Extremities Extremities exam: Normal inspection, Full ROM, Normal capillary refill. negative: Tenderness - Neurological Neurological exam: Alert. negative: Motor sensory deficit - Skin Skin exam: Rash (There is an erythematous macular papular poison rehan appearing rash to the R arm and lowe abdomen. ) Course Vital Signs 06/20/18 18:56 Temperature 98.1 F Pulse Rate [ 111 H Pulse Ox Probe] Respiratory 20 Rate Blood Pressure 119/72 [Left Arm] Pulse Ox 100 - Reevaluation(s) Reevaluation #1: The patient is to continue the Benadryl and start the Prednisone. She is to see her PCP if not better in 3 days. 06/20/18 19:07 Disposition Disposition: Discharge Clinical Impression: Poison rehan dermatitis Disposition: Home, Self-Care Condition: (2) Stable Instructions: Acute Rash (ED) Additional Instructions: Please continue the Benadryl and start the Prednisone. Please see your family doctor if not better in 3 days. Return to the ER for any worsening symptoms. Prescriptions: Prednisone [Prednisone 20Mg] 20 mg PO ASDIR #15 tab Forms: Patient Portal Access Time of Disposition: 19:05 Quality - Quality Measures Quality Measures: N/A - Blood Pressure Screening View Details: Yes Does Patient Have Any of the Following: No Blood Pressure Classification: Normal BP Reading Systolic Measurement: 119 Diastolic Measurement: 72 Screening for High Blood Pressure: < Normal BP, F/U Not Required > [G8783]
== END 2018-06-20 19:12 | disposition home or self-care (01) ==
LOC: ER 18:51
DX: L23.7 Allergic contact dermatitis due to plants, except food (principal)
CPT/HCPCS: 99282

== ENCOUNTER 2018-06-23 12:49 | Emergency (ER) | payer MEDICAID ==
[2018-06-23] MEDS ORDERED: METHYLPREDNISOLONE PF 125MG/VIAL IM ONE (14:24)
--- NOTE | 2018-06-23 14:51 | Emergency Department Record ---
History of Present Illness - General Chief complaint: Rash Stated complaint: POISON SANDRA Time Seen by Provider: 06/23/18 14:00 Source: Patient Mode of Arrival: Ambulatory Limitations: No limitations - History of Present Illness Initial comments: pt here for worsening rash that is itchy.its behind her ears, arms, creases of arms, abdomen, back. she was here 2 days ago and was started on steroid taper and wilner ANTONY complaint: Rash Onset/Timin -: Days(s) Hx Tetanus Toxoid Vaccination: Yes Year of Tetanus Vaccination: 2016 Location: Generalized, Face, LUE, RUE, Genitals Severity: Moderate Severity scale (1-10): 4 Quality: Aching, Burning Consistency: Constant Improves with: None - Related Data Previous Rx's Medication Instructions Recorded Prednisone [Prednisone 20Mg] 20 mg PO ASDIR #15 tab 06/20/18 Triamcinolone Acet Cream [Kenalog 1 apply TP BID #1 tube 06/23/18 Cream] Allergies Allergy/AdvReac Type Severity Reaction Status Date / Time Iodinated Contrast- Oral and Allergy Intermediate SWELLING Verified 06/23/18 13: 19 IV Dye OF THE LIPS Travel Screening - Travel/Exposure Within Last 30 Days Have you traveled within the last 30 days?: No - Travel/Exposure Within Last Year Have you traveled outside the [place] in the last year?: No - Additonal Travel Details Have you been exposed to anyone with a communicable illness?: No - Travel Symptoms Symptom Screening: None Review of Systems Reviewed: No additional complaints except as noted below Constitutional: Reports: As per HPI. Denies: Chills, Fever, Malaise, Night sweats, Weakness, Weight change Eyes: Reports: As per HPI. Denies: Eye discharge, Eye pain, Photophobia, Vision change ENT: Reports: As per HPI. Denies: Congestion, Dental pain, Ear pain, Epistaxis , Hearing loss, Throat pain Respiratory: Reports: As per HPI. Denies: Cough, Dyspnea, Hemoptysis, Stridor, Wheezes Cardiovascular: Reports: As per HPI. Denies: Arrhythmia, Chest pain, Dyspnea on exertion, Edema, Murmurs, Orthopnea, Palpitations, Paroxysmal nocturnal dyspnea, Rheumatic Fever, Syncope Endocrine: Reports: As per HPI. Denies: Fatigue, Heat or cold intolerance, Polydipsia, Polyuria Gastrointestinal: Reports: As per HPI. Denies: Abdominal pain, Constipation, Diarrhea, Hematemesis, Hematochezia, Melena, Nausea, Vomiting Genitourinary: Reports: As per HPI. Denies: Abnormal menses, Discharge, Dyspareunia, Dysuria, Frequency, Hematuria, Incontinence, Retention, Urgency Musculoskeletal: Reports: As per HPI. Denies: Arthralgia, Back pain, Gout, Joint swelling, Myalgia, Neck pain Skin: Reports: As per HPI. Denies: Bruising, Change in color, Change in hair/ nails, Lesions, Pruritus, Rash Neurological: Reports: As per HPI. Denies: Abnormal gait, Confusion, Headache, Numbness, Paresthesias, Seizure, Tingling, Tremors, Vertigo, Weakness Psychiatric: Reports: As per HPI. Denies: Anxiety, Auditory hallucinations, Depression, Homicidal thoughts, Suicidal thoughts, Visual hallucinations Hematological/Lymphatic: Reports: As per HPI. Denies: Anemia, Blood Clots, Easy bleeding, Easy bruising, Swollen glands Past Medical History - SOCIAL HISTORY Smoking Status: Never smoker Alcohol Use: None Drug Use: None - RESPIRATORY Hx Respiratory Disorders: No - CARDIOVASCULAR Hx Cardio Disorders: No - NEURO Hx Neuro Disorders: No - GI Hx GI Disorders: No - Hx Genitourinary Disorders: No - ENDOCRINE Hx Endocrine Disorders: No - MUSCULOSKELETAL Hx Musculoskeletal Disorders: No - PSYCH Hx Psych Problems: No Hx Anxiety: Yes Comment:: ADHD - HEMATOLOGY/ONCOLOGY Hx Hematology/Oncology Disorders: No Family Medical History Any Significant Family History?: No Hx Cancer: Grandparents Hx Diabetes: Mother, Grandparents Physical Exam - General General Appearance: Alert, Oriented x3, Cooperative, Mild distress - Head Head exam: Normal inspection - Eye Eye exam: Normal appearance, PERRL, EOMI Pupils: Normal accommodation - ENT ENT exam: Normal exam, Mucous membranes moist, Normal external ear exam, Normal orophraynx Ear exam: Normal external inspection. negative: External canal tenderness Nasal Exam: Normal inspection. negative: Discharge, Sinus tenderness Mouth exam: Normal external inspection, Tongue normal Teeth exam: Normal inspection. negative: Dental caries Throat exam: Normal inspection. negative: Tonsillar erythema, Tonsillar exudate - Neck Neck exam: Normal inspection, Full ROM. negative: Tenderness - Respiratory Respiratory exam: Normal lung sounds bilaterally. negative: Respiratory distress - Cardiovascular Cardiovascular Exam: Regular rate, Normal rhythm, Normal heart sounds - GI/Abdominal GI/Abdominal exam: Soft, Normal bowel sounds. negative: Tenderness - Rectal Rectal exam: Deferred - exam: Deferred - Extremities Extremities exam: Normal inspection, Full ROM, Normal capillary refill. negative: Tenderness - Back Back exam: Reports: Normal inspection, Full ROM. Denies: Muscle spasm, Rash noted, Tenderness - Neurological Neurological exam: Alert, CN II-XII intact, Normal gait, Oriented X3 - Psychiatric Psychiatric exam: Normal affect, Normal mood - Skin Skin exam: Dry, Intact, Normal color, Warm Course Vital Signs 06/23/18 13:15 Temperature 98.7 F Pulse Rate 92 H Respiratory 18 Rate Blood Pressure 128/74 Pulse Ox 98 Disposition Disposition: Discharge Clinical Impression: Eczema Qualifiers: Eczema type: unspecified Qualified Code(s): L30.9 - Dermatitis, unspecified Disposition: Home, Self-Care Condition: (1) Good Instructions: Eczema (ED) Additional Instructions: follow up with family doctor and with resident engineer. return sooner if worse. continue prednisone and benadryl. do not scratch Prescriptions: Triamcinolone Acet Cream [Kenalog Cream] 1 apply TP BID #1 tube Quality - Quality Measures Quality Measures: N/A - Blood Pressure Screening Does Patient Have Any of the Following: No Blood Pressure Classification: Pre-Hypertensive BP Reading Systolic Measurement: 128 Diastolic Measurement: 74 Screening for High Blood Pressure: < Pre-Hypertensive BP, F/U Documented > [ G8950] Pre-Hypertensive Follow-up Interventions: Follow-up with rescreen every year.
== END 2018-06-23 15:03 | disposition home or self-care (01) ==
LOC: ER 12:49
DX: L30.9 Dermatitis, unspecified (principal)
CPT/HCPCS: 96372; 99282; 99283; J2930

== ENCOUNTER 2019-09-27 12:34 | Emergency (ER) | payer MEDICARE, MEDICAID ==
[2019-09-27 13:34] LABS: INFLUENZA A NEGATIVE (NEGATIVE); INFLUENZA B NEGATIVE (NEGATIVE)
--- NOTE | 2019-09-27 14:21 | Emergency Department Record ---
History of Present Illness - General Chief complaint: ENT Stated complaint: SORE THROAT Time Seen by Provider: 09/27/19 13:05 Source: Patient, RN notes reviewed Mode of Arrival: Ambulatory - History of Present Illness Initial comments: hoarse voice and no pain and left ear plugged Onset/Timin -: Days(s) Location: L ear Improves with: None Worsens with: None Associated Symptoms: Cough - Related Data Previous Rx's Medication Instructions Recorded Amoxicillin 500Mg Capsule [Amoxil] 500 mg PO TID #30 tab 09/27/19 Allergies Allergy/AdvReac Type Severity Reaction Status Date / Time Iodinated Contrast Media Allergy Intermediate SWELLING Verified 09/27/19 13:03 OF THE LIPS Travel Screening - Travel/Exposure Within Last 30 Days Have you traveled within the last 30 days?: No - Travel/Exposure Within Last Year Have you traveled outside the [place] in the last year?: No - Additonal Travel Details Have you been exposed to anyone with a communicable illness?: No - Travel Symptoms Symptom Screening: None Review of Systems Reviewed: No additional complaints except as noted below Constitutional: Reports: As per HPI. Denies: Chills, Fever, Malaise, Night sweats, Weakness, Weight change Eyes: Reports: As per HPI. Denies: Eye discharge, Eye pain, Photophobia, Vision change ENT: Reports: As per HPI, Congestion, Ear pain, Other (hoarse voice). Denies: Dental pain, Epistaxis, Hearing loss, Throat pain Respiratory: Reports: As per HPI. Denies: Cough, Dyspnea, Hemoptysis, Stridor, Wheezes Cardiovascular: Reports: As per HPI. Denies: Arrhythmia, Chest pain, Dyspnea on exertion, Edema, Murmurs, Orthopnea, Palpitations, Paroxysmal nocturnal dyspnea, Rheumatic Fever, Syncope Endocrine: Reports: As per HPI. Denies: Fatigue, Heat or cold intolerance, Polydipsia, Polyuria Gastrointestinal: Reports: As per HPI. Denies: Abdominal pain, Constipation, Diarrhea, Hematemesis, Hematochezia, Melena, Nausea, Vomiting Genitourinary: Reports: As per HPI. Denies: Abnormal menses, Discharge, Dyspareunia, Dysuria, Frequency, Hematuria, Incontinence, Retention, Urgency Musculoskeletal: Reports: As per HPI. Denies: Arthralgia, Back pain, Gout, Joint swelling, Myalgia, Neck pain Skin: Reports: As per HPI. Denies: Bruising, Change in color, Change in hair/nails, Lesions, Pruritus, Rash Neurological: Reports: As per HPI. Denies: Abnormal gait, Confusion, Headache, Numbness, Paresthesias, Seizure, Tingling, Tremors, Vertigo, Weakness Psychiatric: Reports: As per HPI. Denies: Anxiety, Auditory hallucinations, Depression, Homicidal thoughts, Suicidal thoughts, Visual hallucinations Hematological/Lymphatic: Reports: As per HPI. Denies: Anemia, Blood Clots, Easy bleeding, Easy bruising, Swollen glands Past Medical History - SOCIAL HISTORY Smoking Status: Never smoker Alcohol Use: None Drug Use: None - RESPIRATORY Hx Respiratory Disorders: No - CARDIOVASCULAR Hx Cardio Disorders: No - NEURO Hx Neuro Disorders: No - GI Hx GI Disorders: No - Hx Genitourinary Disorders: No - ENDOCRINE Hx Endocrine Disorders: No - MUSCULOSKELETAL Hx Musculoskeletal Disorders: No - PSYCH Hx Psych Problems: No Hx Anxiety: Yes Comment:: ADHD - HEMATOLOGY/ONCOLOGY Hx Hematology/Oncology Disorders: No Family Medical History Any Significant Family History?: No Hx Cancer: Grandparents Hx Diabetes: Mother, Grandparents Physical Exam - General General Appearance: Alert, Oriented x3, Cooperative, No acute distress - Head Head exam: Normal inspection - Eye Eye exam: Normal appearance, PERRL Pupils: Normal accommodation - ENT ENT exam: Mucous membranes moist, Normal external ear exam, Other (right ) Ear exam: Normal external inspection (TM right red and fluid behind the ear). negative: External canal tenderness Nasal Exam: Normal inspection. negative: Discharge, Sinus tenderness Mouth exam: Normal external inspection, Tongue normal Teeth exam: Normal inspection. negative: Dental caries Throat exam: Normal inspection. negative: Tonsillar erythema, Tonsillar exudate - Neck Neck exam: Normal inspection, Full ROM. negative: Tenderness - Respiratory Respiratory exam: Normal lung sounds bilaterally. negative: Respiratory distress - Cardiovascular Cardiovascular Exam: Regular rate, Normal rhythm, Normal heart sounds - GI/Abdominal GI/Abdominal exam: Soft, Normal bowel sounds. negative: Tenderness - Rectal Rectal exam: Deferred - exam: Deferred - Extremities Extremities exam: Normal inspection, Full ROM, Normal capillary refill. negative: Tenderness - Back Back exam: Reports: Normal inspection, Full ROM. Denies: Muscle spasm, Rash noted, Tenderness - Neurological Neurological exam: Alert, Normal gait, Oriented X3, Reflexes normal - Psychiatric Psychiatric exam: Normal affect, Normal mood - Skin Skin exam: Dry, Intact, Normal color, Warm Course Vital Signs 09/27/19 12:42 Temperature 99.2 F Pulse Rate 88 Respiratory 16 Rate Blood Pressure 129/65 Pulse Ox 100 Medical Decision Making - Lab Data Lab Results 09/27/19 09/27/19 Range/Units 13:05 13:05 Influenza Type A Ag Negative (NEGATIVE) Influenza Type B Ag Negative (NEGATIVE) Group A Strep Screen Negative (NEGATIVE) Disposition Clinical Impression: Laryngitis Otitis media Qualifiers: Otitis media type: suppurative Chronicity: acute Laterality: left Recurrence: non-recurrent Spontaneous tympanic membrane rupture: without spontaneous rupture Qualified Code(s): H66.002 - Acute suppurative otitis media without spontaneous rupture of ear drum, left ear Disposition: Home, Self-Care Condition: (1) Good Instructions: Laryngitis (ED), Otitis Media (ED) Prescriptions: Amoxicillin 500Mg Capsule [Amoxil] 500 mg PO TID #30 tab Forms: Patient Portal Access Time of Disposition: 14:44 Quality - Quality Measures Quality Measures: N/A - Blood Pressure Screening Does Patient Have Any of the Following: No Blood Pressure Classification: Pre-Hypertensive BP Reading Systolic Measurement: 129 Diastolic Measurement: 65 Screening for High Blood Pressure: < Pre-Hypertensive BP, F/U Documented > [G8950] Pre-Hypertensive Follow-up Interventions: Referral to alternative/primary care provider.
== END 2019-09-27 14:55 | disposition home or self-care (01) ==
LOC: ER 12:34
DX: H66.002 Acute suppurative otitis media without spontaneous rupture of ear drum, left ear (principal); J04.0 Acute laryngitis
CPT/HCPCS: 87400; 87880; 99283